=== PATIENT | female | born 1995 ===

== ENCOUNTER 2018-06-09 14:09 | Emergency (ER) | payer OTHER ==
[2018-06-09 14:20] VITALS: BP 131/72; PULSE 85; RESP 20; TEMP 98.1
[2018-06-09] MEDS ORDERED: IBUPROFEN 600 MG TAB PO STA (14:42)
--- NOTE | 2018-06-09 16:19 | ED ---
General Adult HPI - General Chief complaint: Extremity Problem,Nontraumatic Stated complaint: Lower leg pain Time Seen by Provider: 06/09/18 14:18 Source: patient, RN notes reviewed Mode of arrival: wheelchair Limitations: no limitations - History of Present Illness Initial comments: 22-year-old female presents to the emergency department for a chief complaint of left leg pain 3 days. Patient states she was walking when she felt a pop in her left upper calf. Patient denies falling or any other injuries. Patient states she had surgery on that leg in 2013 when she was cut with a chainsaw. Patient denies any swelling or warmth of the calf. Patient denies any history of blood clots.Patient has no other complaints at this time including shortness of breath, chest pain, abdominal pain, nausea or vomiting, headache, or visual changes. - Related Data Home Medications Medication Instructions Recorded Confirmed No Known Home Medications 06/09/18 06/09/18 Allergies Allergy/AdvReac Type Severity Reaction Status Date / Time amoxicillin Allergy Unknown Verified 06/09/18 14:20 Penicillins Allergy Unknown Verified 06/09/18 14:20 Review of Systems ROS Statement: Those systems with pertinent positive or pertinent negative responses have been documented in the HPI. ROS Other: All systems not noted in ROS Statement are negative. Past Medical History Past Medical History: No Reported History History of Any Multi-Drug Resistant Organisms: None Reported Past Surgical History: Orthopedic Surgery, Tonsillectomy Past Psychological History: No Psychological Hx Reported Smoking Status: Current every day smoker Past Alcohol Use History: Occasional Past Drug Use History: None Reported General Exam Limitations: no limitations General appearance: alert, in no apparent distress Head exam: Present: atraumatic, normocephalic, normal inspection Eye exam: Present: normal appearance ENT exam: Present: normal exam, mucous membranes moist Neck exam: Present: normal inspection, full ROM. Absent: tenderness, meningismus, lymphadenopathy Respiratory exam: Present: normal lung sounds bilaterally. Absent: respiratory distress, wheezes, rales, rhonchi, stridor Cardiovascular Exam: Present: regular rate, normal rhythm, normal heart sounds. Absent: systolic murmur, diastolic murmur, rubs, gallop, clicks Extremities exam: Present: tenderness (Tenderness to the lateral aspect of the left lower leg just below the knee. Patient complains of tenderness over the entire knee both anterior and posterior.), normal capillary refill (Capillary refill less than 2 seconds and pedal pulse 2+), other (Patient refuses to try to walk on the knee. Patient complains of diffuse tenderness over the entire left lower leg. No signs of infection such as cellulitic changes, spreading redness, abscess or drainage. No lacerations. No swelling or ecchymosis noted. No signs of trauma to the left knee.). Absent: full ROM (Patient has full extension of the left knee with 90 flexion.) Course Vital Signs 06/09/18 14:18 Temperature 98.1 F Pulse Rate 85 Respiratory 20 Rate Blood Pressure 131/72 O2 Sat by Pulse 99 Oximetry Medical Decision Making - Medical Decision Making 22-year-old female since to the emergency department for a chief complaint of left lower extremity pain. Patient felt a pop in her left calf. No signs of infection. No swelling or ecchymosis. No signs of trauma. Patient very exaggerated about the pain. I brushed patient's lateral knee with finger and she raised fists at me. I did examine patient and offered Motrin and an x-ray. I discussed with patient that I will order all the testing I can do here and try to treat her pain. I discussed that if it is soft tissue she will likely have to follow up with orthopedics. Apparently, as I was ordering the x-ray patient left because she was upset an orthopedic surgeon would not see her in the emergency department and she is from out of town and does not feel like she should have to drive back to see an orthopedic surgeon. Patient walked out of the emergency department herself without difficulty. Disposition Clinical Impression: Leg pain, lateral Disposition: Left Against Medical Advice Condition: Good Is patient prescribed a controlled substance at d/c from ED?: No Referrals: Len Bell MD [Primary Care Provider] - 1-2 days Time of Disposition: 16:27
== END 2018-06-09 15:02 | disposition left against medical advice (07) ==
LOC: EC 14:09
DX: M79.662 Pain in left lower leg (principal); F17.200 Nicotine dependence, unspecified, uncomplicated; Z88.0 Allergy status to penicillin
CPT/HCPCS: 99283